=== PATIENT | female | born 1995 | race Caucasian/White ===

== ENCOUNTER → 2016-08-25 00:33 | Emergency (ER) | payer OTHER ==
[~2016-08-25 00:33] MED LIST: NS 0.9% 1000 ML* 1,000 ML IV ONE; Ondansetron ODT TAB* 4 MG ONE
[2016-08-25 01:13] LABS: Urine Bilirubin Negative (Negative); Urine Glucose Negative (Negative); Urine Nitrite Negative (Negative)
[2016-08-25 01:42] LABS: Hematocrit 44 % (35-47); Hemoglobin 14.9 g/dl (12.0-16.0); Mean Corpuscular HGB Conc 34 g/dl (31-36); Mean Corpuscular Hemoglobin 29 pg (27-31); Mean Corpuscular Volume 86 fL (80-97); Mean Platelet Volume 9 um3 (7.4-10.4); Red Blood Count 5.11 10^6/ul (4.0-5.4); Red Cell Distribution Width 13 % (10.5-15); White Blood Count 7.3 10^3/ul (3.5-10.8)
[2016-08-25 01:54] LABS: ALT 11 U/L (7-52); AST 14 U/L (13-39); Albumin 4.2 g/dL (3.2-5.2); Alkaline Phosphatase 52 U/L (34-104); Anion Gap 6 mmol/L (2-11); BUN/Creatinine Ratio 9.5 (8-20); Blood Urea Nitrogen 7 mg/dL (6-24); CO2 Carbon Dioxide 29 mmol/L (22-32); Calcium 10.7 mg/dL (8.6-10.3); Chloride 101 mmol/L (101-111); EGFR African American 127.4 (>60); EGFR Non-African American 99.1 (>60); Globulin 2.4 g/dL (2-4); Glucose 101 mg/dL (70-100); Lipase 32 U/L (11.0-82.0); Potassium 3.5 mmol/L (3.5-5.0); Sodium 136 mmol/L (133-145); Total Protein 6.6 g/dL (6.4-8.9)
--- NOTE | 2016-08-25 02:19 | ED ---
Armen Marie Billy, scribed for Russell Jones MD on 08/25/16 at 0116 . Abdominal Pain/Female - HPI Summary HPI Summary: Patient is a 20 year-old female coming to [facility] for evaluation of RLQ abdominal pain for the last 6 days. Patient states that she has had nausea and headache since the onset of her pain and had vomiting for the first few days of her symptoms, but this has since resolved. She also had burning with urination a few days ago, which has also resolved. Denies any vaginal discharge, fever, or diarrhea. Patient has a history of ovarian cysts. - History of Current Complaint Chief Complaint: EDAbdPain Stated Complaint: VOMITING/NAUSEA Time Seen by Provider: 08/25/16 01:00 Hx Obtained From: Patient Onset/Duration: Gradual Onset, Lasting Days Timing: Constant Severity Initially: Moderate Severity Currently: Moderate Pain Intensity: 3 Pain Scale Used: 0-10 Numeric Location: Discrete At: RLQ Radiates: No Aggravating Factor(s): Nothing Alleviating Factor(s): Nothing Associated Signs and Symptoms: Positive: Urinary Symptoms, Nausea, Vomiting, Other: - headache. Negative: Fever, Vaginal Discharge, Diarrhea Allergies/Adverse Reactions: Allergies Allergy/AdvReac Type Severity Reaction Status Date / Time Lactose Intolerance (GI) Allergy Nausea Verified 08/25/16 01:31 Metronidazole [From Flagyl] Allergy Rash Verified 08/25/16 00:40 PMH/Surg Hx/FS Hx/Imm Hx Endocrine/Hematology History: Denies: Hx Diabetes Respiratory History: Denies: Hx Asthma History: Reports: Other Problems/Disorders - Ovarian cysts Infectious Disease History: Denies: Traveled Outside the [place] in Last 30 Days - Family History Known Family History: Negative: Cardiac Disease, Hypertension, Diabetes - Social History Alcohol Use: Occasionally Substance Use Type: Reports: None Smoking Status (MU): Never Smoked Tobacco Review of Systems Negative: Fever Positive: Abdominal Pain, Vomiting, Nausea. Negative: Diarrhea Positive: dysuria. Negative: discharge, hematuria Positive: Headache All Other Systems Reviewed And Are Negative: Yes Physical Exam Triage Information Reviewed: Yes Vital Signs On Initial Exam: Initial Vitals Temp Pulse Resp BP Pulse Ox 98.3 F 60 16 130/83 100 08/25/16 00:35 08/25/16 00:35 08/25/16 00:35 08/25/16 00:35 08/25/16 00:35 Vital Signs Reviewed: Yes Appearance: Positive: Well-Appearing, No Pain Distress Skin: Positive: Warm Head/Face: Positive: Normal Head/Face Inspection Eyes: Positive: RAMOS ENT: Positive: Hearing grossly normal Neck: Positive: Supple Respiratory/Lung Sounds: Positive: Clear to Auscultation, Breath Sounds Present Cardiovascular: Positive: RRR Abdomen Description: Positive: Nontender, No Organomegaly, Soft Bowel Sounds: Positive: Present Musculoskeletal: Positive: Strength/ROM Intact Neurological: Positive: Alert, Oriented to Person Place, Time Psychiatric: Positive: Affect/Mood Appropriate Diagnostics - Vital Signs Vital Signs Temp Pulse Resp BP Pulse Ox 08/25/16 00:35 98.3 F 60 16 130/83 100 - Laboratory Lab Results: Lab Results 08/25/16 08/25/16 08/25/16 Range/Units 00:56 01:25 01:25 WBC 7.3 (3.5-10.8) 10^3/ul RBC 5.11 (4.0-5.4) 10^6/ul Hgb 14.9 (12.0-16.0) g/dl Hct 44 (35-47) % MCV 86 (80-97) fL MCH 29 (27-31) pg MCHC 34 (31-36) g/dl RDW 13 (10.5-15) % Plt Count 211 (150-450) 10^3/ul MPV 9 (7.4-10.4) um3 Neut % (Auto) 59.0 (38-83) % Lymph % (Auto) 31.0 (25-47) % [place] % (Auto) 6.2 (1-9) % Eos % (Auto) 2.4 (0-6) % Baso % (Auto) 1.4 (0-2) % Absolute Neuts (auto) 4.3 (1.5-7.7) 10^3/ul Absolute Lymphs (auto) 2.3 (1.0-4.8) 10^3/ul Absolute Monos (auto) 0.5 (0-0.8) 10^3/ul Absolute Eos (auto) 0.2 (0-0.6) 10^3/ul Absolute Basos (auto) 0.1 (0-0.2) 10^3/ul Absolute Nucleated RBC 0.01 10^3/ul Nucleated RBC % 0.2 Sodium 136 (133-145) mmol/L Potassium 3.5 (3.5-5.0) mmol/L Chloride 101 (101-111) mmol/L Carbon Dioxide 29 (22-32) mmol/L Anion Gap 6 (2-11) mmol/L BUN 7 (6-24) mg/dL Creatinine 0.74 (0.51-0.95) mg/dL Est GFR ( Amer) 127.4 (>60) Est GFR (Non-Af Amer) 99.1 (>60) BUN/Creatinine Ratio 9.5 (8-20) Glucose 101 H (70-100) mg/dL Calcium 10.7 H (8.6-10.3) mg/dL Magnesium 2.0 (1.9-2.7) mg/dL Total Bilirubin 0.30 (0.2-1.0) mg/dL AST 14 (13-39) U/L ALT 11 (7-52) U/L Alkaline Phosphatase 52 (34-104) U/L C-Reactive Protein 5.30 H (< 5.00) mg/L Total Protein 6.6 (6.4-8.9) g/dL Albumin 4.2 (3.2-5.2) g/dL Globulin 2.4 (2-4) g/dL Albumin/Globulin Ratio 1.8 (1-3) Lipase 32 (11.0-82.0) U/L Beta HCG, Quant < 0.60 mIU/mL Urine Color Colorless Urine Appearance Clear Urine pH 7.0 (5-9) Ur Specific [place] 1.002 L (1.010-1.030) Urine Protein Negative (Negative) Urine Ketones Negative (Negative) Urine Blood Negative (Negative) Urine Nitrate Negative (Negative) Urine Bilirubin Negative (Negative) Urine Urobilinogen Negative (Negative) Ur Leukocyte Esterase Negative (Negative) Urine Glucose Negative (Negative) Result Diagrams: 08/25/16 01:25 08/25/16 01:25 Lab Statement: Any lab studies that have been ordered have been reviewed, and results considered in the medical decision making process. Abdominal Pain Fem Course/Dx - Diagnoses Provider Diagnoses: Abdominal pain Discharge - Discharge Plan Condition: Stable Disposition: HOME Patient Education Materials: Abdominal Pain (ED) Referrals: [facility] [place] PHYSICIAN REFERRAL [Outside] The documentation as recorded by the scribArmen dent Billy accurately reflects the service I personally performed and the decisions made by me, Russell Jones MD.
[2016-08-25 02:34] VITALS: BP 118/75
== END | disposition home or self-care (01) ==
LOC: ED 00:33
DX: R10.31 Right lower quadrant pain (principal); R11.2 Nausea with vomiting, unspecified; R51 Headache; R30.0 Dysuria
CPT/HCPCS: 36415; 80053; 81003; 83690; 83735; 84702; 85025; 86140; 99282; A9270-GY